=== PATIENT | male | born 1980 | race African-American/Black ===

== ENCOUNTER 2025-07-23 10:53 | Observation (INO) | payer SELFPAY ==
[2025-07-23 11:42] LABS: Absolute Lymphocytes (CBC) 2.0 K/uL (0.7-4.9); Hematocrit 42.6 % (39.6-49.0); Hemoglobin 14.1 g/dL (13.6-17.9); MCH 30.4 pg (27.0-35.0); MCHC 33.2 g/dL (32.0-36.0); MCV 91.6 fL (80-100); MPV 7.5 fL (7.6-11.3); Nucleated RBC Absolute Count 0.0 (0-0); Nucleated Red Blood Cells % 0.1 % (0-0); RBC Red Blood Cell Count 4.66 M/uL (4.33-5.43); White Blood Count 5.80 thou/uL (4.3-10.9)
[2025-07-23 11:49] LABS: PT Prothrombin Time 11.8 SECONDS (10-13.0); Protime INR 1.05
[2025-07-23 12:04] LABS: Anion Gap 8.7 mEq/L (5.0-15.0); BUN Blood Urea Nitrogen 17.0 mg/dL (7-18); Glucose Level 100.0 mg/dL (74-106); NT PRO-BNP 11.0 pg/mL (<125); Potassium 3.7 mEq/L (3.5-5.1); Troponin High Sensitivity 6.6 pg/mL (<58.9)
--- NOTE | 2025-07-23 12:42 | RAD REPORT ---
EXAMINATION: ONE VIEW CHEST XR CLINICAL INDICATION: Male, 45 years old.,CHEST PAIN TECHNIQUE: Frontal chest projection is submitted. Examination is limited by patient positioning and t echnique. COMPARISON: 04/09/2017 FINDINGS: The lungs are well inflated and clear. No pneumothorax or sizable effusion. The heart is normal in s ize. Mediastinal contours are unremarkable. IMPRESSION: No acute intrathoracic abnormalities.
--- NOTE | 2025-07-23 12:47 | RAD REPORT ---
EXAM: CT Chest For Pe Angio TECHNIQUE: CT angiogram of the chest was performed following intravenous contrast administration, inc luding sagittal and coronal as well as maximum intensity projection reformats. One or more of the following dose reduction techniques were used: Automated exposure control, adjustment of the mA and k V according to patient size, and iterative reconstruction. Unless otherwise specified, incidental findings do not require dedicated imaging follow-up. INDICATION: [facility] MAIN CHEST PAIN Bed Name: [id number] COMPARISON: Chest radiograph of the same day. FINDINGS: LINES/TUBES: None. PULMONARY ARTERIES: Main pulmonary arteries are normal in caliber. No filling defects within the pul monary arteries to suggest pulmonary embolus. LUNGS AND AIRWAYS: The lungs and central airways are normal without focal abnormality. PLEURA: No effusion or pneumothorax. HEART AND MEDIASTINUM: The visualized thyroid gland is normal. No mediastinal, hilar, or axillary lym phadenopathy. Heart is unremarkable. No pericardial effusion. SOFT TISSUES AND BONES: No acute osseous abnormality. No significant soft tissue finding. UPPER ABDOMEN: Unremarkable. IMPRESSION: No evidence of acute central pulmonary emboli. No suspicious intrathoracic findings..
[2025-07-23] MEDS ORDERED: ASPIRIN 325 MG TAB ONE (13:13)
--- NOTE | 2025-07-23 13:13 | EDPHYS ---
Physician Documentation [facility] Name: Brad Gaston Age: 45 yrs Sex: Male : 1980 Arrival Date: 07/23/2025 Time: 10:53 Bed 4 Private MD: ED Physician Gary Badillo HPI: 07/23 13:06 This 45 yrs old Black Male presents to ER via Ambulatory with complaints of Chest Pain. rn 13:06 Patient reports left-sided chest pain, sharp, not any worse with taking a deep breath. rn Patient has had blood clot in the past. Has also had MO with stent 10 years ago and has not seen cardiology since. No fever or cough. No trauma. No abdominal pain.. Historical: - Allergies: 11:14 No Known Allergies; bp - PMHx: 11:14 Hypertension; MRSA INFECTIONS; Myocardial infarction; bp - Immunization history:: Adult Immunizations up to date. - Infectious Disease History:: Denies. - Social history:: Smoking status: unknown. - Family history:: not pertinent. - Hospitalizations: : No recent hospitalization is reported. ROS: 13:06 Constitutional: Negative for fever, chills, and weight loss, Cardiovascular: Positive rn for chest pain Respiratory: Negative for shortness of breath, cough, wheezing, and pleuritic chest pain, Abdomen/GI: Negative for abdominal pain, nausea, vomiting, diarrhea, and constipation, MS/Extremity: Negative for injury and deformity, Skin: Negative for injury, rash, and discoloration, Neuro: Negative for headache, weakness, numbness, tingling, and seizure, Exam: 13:06 Constitutional: This is a well developed, well nourished patient who is awake, alert, rn and in no acute distress. Cardiovascular: Regular rate and rhythm. No pulse deficits. Respiratory: Speaking full sentences, unlabored. No increased work of breathing, no retractions or nasal flaring. Abdomen/GI: Soft, non-tender MS/ Extremity: Pulses equal, no cyanosis. Neurovascular intact. Full, normal range of motion. Equal circumference. Neuro: Awake and alert, GCS 15 13:06 ECG was reviewed by the Attending Physician. Vital Signs: 11:13 BP 147 / 93; Pulse 88; Resp 16; Temp 98; Pulse Ox 98% ; Weight 136.08 kg; Height 5 ft. bp 11 in. ; 13:15 BP 119 / 88; Pulse 88; Resp 18; Pulse Ox 100% ; mb9 19:00 BP 125 / 87; Pulse 70; Resp 17; Pulse Ox 100% on R/A; lg3 11:13 Body Mass Index 41.84 (136.08 kg, 180.34 cm) bp MDM: 10:56 Medical Screening Exam initiated rn 13:10 Differential diagnosis: acute myocardial infarction, acute pericarditis, anxiety, rn coronary artery disease chest wall pain, costochondritis, esophagitis, gastritis, pleurisy, pneumothorax, pulmonary embolus, stable angina, unstable angina. HEART Score: History: Moderately Suspicious (1), ECG: Non specific repolarization disturbance / LBTB / PM (1), Age: < or = 45 years (0), Risk Factors: > or = 3 Risk factors for atherosclerotic disease (2), Troponin: < or = 1 x Normal Limit (0), Total Score = 4. Data reviewed: vital signs, nurses notes, lab test result(s), EKG, radiologic studies, CT scan, plain films, and as a result, I will admit patient. Consideration of Admission/Observation Patient was admitted/placed on observation. Escalation of care including admission/observation considered. Independent interpretation of the following test(s) in the Emergency Department EKG: See my EKG interpretation above X-Ray: My interpretation is Chest x-ray images negative for pneumonia or pneumothorax per my interpretation. case monitor: rate is 88 beats/min, Rhythm is normal sinus rhythm, regular, with no ectopy, Interpretation: normal rate, normal rhythm. Care significantly affected by the following chronic conditions: Myocardial infarction with stent. Counseling: I had a detailed discussion with the patient and/or guardian regarding the historical points, exam findings, and any diagnostic results supporting the discharge/admit diagnosis, lab results, radiology results, the need for further work-up and treatment in the hospital. Response to treatment: the patient's symptoms have mildly improved after treatment, and as a result, I will admit patient. 07/23 10:57 Order name: Basic Metabolic Panel; Complete Time: 12:16 rn 07/23 10:57 Order name: CBC with Diff; Complete Time: 12:16 rn 07/23 10:57 Order name: NT PRO-BNP; Complete Time: 12:16 rn 07/23 10:57 Order name: PT-INR; Complete Time: 12:16 rn 07/23 10:57 Order name: Troponin HS; Complete Time: 12:16 rn 07/23 14:54 Order name: CBC with Automated Diff EDMS 07/23 14:54 Order name: CBC with Automated Diff EDMS 07/23 14:54 Order name: Comprehensive Metabolic Panel EDMS 07/23 14:54 Order name: Comprehensive Metabolic Panel EDMS 07/23 14:54 Order name: Lipid Profile EDMS 07/23 14:54 Order name: Lipid Profile EDMS 07/23 14:54 Order name: Protime (+INR) EDMS 07/23 14:54 Order name: Protime (+INR) EDMS 07/23 14:54 Order name: PTT, Activated Partial Thromb EDMS 07/23 14:54 Order name: PTT, Activated Partial Thromb EDMS 07/23 14:54 Order name: Troponin High Sensitivity EDMS 07/23 14:54 Order name: Troponin High Sensitivity EDMS 07/23 14:54 Order name: Troponin High Sensitivity EDMS 07/23 10:57 Order name: XRAY Chest (1 view); Complete Time: 13:02 rn 07/23 10:57 Order name: CT Chest For PE Angio; Complete Time: 13:02 rn 07/23 14:54 Order name: CONS Physician Consult EDMS 07/23 10:57 Order name: Cardiac monitoring; Complete Time: 11:28 rn 07/23 10:57 Order name: EKG - Nurse/Tech; Complete Time: 11:28 rn 07/23 10:57 Order name: IV Saline Lock; Complete Time: 11:28 rn 07/23 10:57 Order name: Labs collected and sent; Complete Time: 11:28 rn 07/23 10:57 Order name: O2 Per Protocol; Complete Time: 11:28 rn 07/23 10:57 Order name: O2 Sat Monitoring; Complete Time: 11:28 rn EC:06 Rate is 84 beats/min. Rhythm is regular. QRS [place] is Normal. [place] interval is normal. QRS rn interval is normal. QT interval is normal. No Q waves. T waves are Inverted in lead III. No ST changes noted. Clinical impression: NSR w/ Non-specific ST/T Changes. Interpreted by me. Reviewed by me. Administered Medications: 13:15 Drug: Aspirin PO 325 mg PO once Route: PO; mb9 14:16 Follow up: Response: No adverse reaction mb9 Disposition Summary: 07/23/25 13:12 Hospitalization Ordered Notes: Hospitalization Status: Observation rn Provider: Hector Sena rn Location: Telemetry/MedSurg (observation) rn Condition: Stable rn Problem: new rn Symptoms: have improved rn Bed/Room Type: Standard rn Room Assignment: 221(07/23/25 18:07) bc6 Diagnosis - Chest pain, unspecified rn Forms: - Medication Reconciliation Form rn - SBAR form rn - Leadership Thank You Letter rn Signatures: Dispatcher [employer] EDMS Gary Badillo MD MD rn Peltier, Brian RN Sherlyn Chow RN RN mb9 Anabel Loredo bc6 Corrections: (The following items were deleted from the chart) 10:57 10:57 Chest Single View+RAD.RAD.BRZ ordered. EDUT EDMS 10:57 10:57 Chest For PE Angio+CT.RAD.BRZ ordered. EDUT EDMS 18:07 13:12 rn bc6
--- NOTE | 2025-07-23 13:13 | ER ---
Nurse's Notes [facility] Name: Brad Gaston Age: 45 yrs Sex: Male : 1980 Arrival Date: 07/23/2025 Time: 10:53 Bed 4 Private MD: Diagnosis: Chest pain, unspecified Presentation: 07/23 11:13 Chief complaint: Patient states: 20 MIN LEFT CP, SHARP. Coronavirus screen: At this bp time, the client does not indicate any symptoms associated with coronavirus-19. Ebola Screen: No symptoms or risks identified at this time. Initial Sepsis Screen: Does the patient meet any 2 criteria? No. Patient's initial sepsis screen is negative. Does the patient have a suspected source of infection? No. Patient's initial sepsis screen is negative. Risk Assessment: Do you want to hurt yourself or someone else? Patient reports no desire to harm self or others. Onset of symptoms was July 23, 2025 at 10:30. 11:13 Method Of Arrival: Ambulatory bp 11:13 Acuity: MARIO 3 bp Triage Assessment: 11:14 General: Appears uncomfortable, Behavior is cooperative, appropriate for age, anxious. bp Pain: Complains of pain in chest. EENT: No deficits noted. Neuro: No deficits noted. Cardiovascular: Reports chest pain. Respiratory: No deficits noted. GI: No signs and/or symptoms were reported involving the gastrointestinal system. : No signs and/or symptoms were reported regarding the genitourinary system. Derm: No deficits noted. Musculoskeletal: No deficits noted. Historical: - Allergies: 11:14 No Known Allergies; bp - PMHx: 11:14 Hypertension; MRSA INFECTIONS; Myocardial infarction; bp - Immunization history:: Adult Immunizations up to date. - Infectious Disease History:: Denies. - Social history:: Smoking status: unknown. - Family history:: not pertinent. - Hospitalizations: : No recent hospitalization is reported. Screenin:41 [facility] ED Fall Risk Assessment (Adult) History of falling in the last 3 months, mb9 including since admission No falls in past 3 months (0 pts) Confusion or Disorientation No (0 pts) Intoxicated or Sedated No (0 pts) Impaired Gait No (0 pts) Mobility Assist Device Used No (0 pt) Altered Elimination No (0 pt) Score/Fall Risk Level 0 - 2 = Low Risk Oriented to surroundings, Maintained a safe environment, Educated pt \T\ family on fall prevention, incl call for assistance when getting out of bed. Abuse screen: Denies threats or abuse. Nutritional screening: No deficits noted. Tuberculosis screening: No symptoms or risk factors identified. Assessment: 12:54 General: Appears in no apparent distress. Behavior is calm, cooperative. Pain: mb9 Complains of pain in chest Pain does not radiate. Pain currently is 4 out of 10 on a pain scale. Quality of pain is described as sharp, stabbing, Pain began suddenly, Is continuous. Neuro: Baldwin Agitation-Sedation Scale (RASS): 0 - Alert and Calm Level of Consciousness is awake, alert, obeys commands, Oriented to person, place, time, situation, Appropriate for age. Cardiovascular: Reports chest pain, Heart tones S1 S2 present Patient's skin is warm and dry. Respiratory: Airway is patent Respiratory effort is even, unlabored, Respiratory pattern is regular, symmetrical, Breath sounds are clear bilaterally. GI: Abdomen is round non-distended, Bowel sounds present X 4 quads. : No signs and/or symptoms were reported regarding the genitourinary system. EENT: Derm: Skin is pink, warm \T\ dry. Musculoskeletal: Range of motion: intact in all extremities. 14:15 Reassessment: Patient appears in no apparent distress at this time. No changes from mb9 previously documented assessment. Patient and/or family updated on plan of care and expected duration. Pain level reassessed. Patient is alert, oriented x 3, equal unlabored respirations, skin warm/dry/pink. 19:00 Reassessment: Patient appears in no apparent distress at this time. No changes from lg3 previously documented assessment. Patient and/or family updated on plan of care and expected duration. Pain level reassessed. Patient is alert, oriented x 3, equal unlabored respirations, skin warm/dry/pink. Patient states feeling better. Vital Signs: 11:13 BP 147 / 93; Pulse 88; Resp 16; Temp 98; Pulse Ox 98% ; Weight 136.08 kg; Height 5 ft. bp 11 in. ; 13:15 BP 119 / 88; Pulse 88; Resp 18; Pulse Ox 100% ; mb9 19:00 BP 125 / 87; Pulse 70; Resp 17; Pulse Ox 100% on R/A; lg3 11:13 Body Mass Index 41.84 (136.08 kg, 180.34 cm) bp ED Course: 10:54 Patient arrived in ED. im 10:56 Gary Badillo MD is Attending Physician. rn 11:14 Triage completed. bp 11:14 Arm band placed on. bp 11:28 Inserted saline lock: 20 gauge in left forearm, using aseptic technique. Blood ty collected. Flushed with 10 mL NS. 11:58 XRAY Chest (1 view) In Process Unspecified. EDMS 12:26 CT Chest For PE Angio In Process Unspecified. EDMS 12:36 Sherlyn Kidd, RN is Primary Nurse. mb9 12:42 Bed in low position. Call light in reach. Side rails up X 1. Provided Education on: mb9 press call light if needing anything. Client placed on continuous cardiac and pulse oximetry monitoring. NIBP monitoring applied. water treatment plant repairer on. 13:12 Hector Sena MD is Hospitalizing Provider. rn 14:15 No provider procedures requiring assistance completed. Patient admitted, IV remains in mb9 place. Administered Medications: 13:15 Drug: Aspirin PO 325 mg PO once Route: PO; mb9 14:16 Follow up: Response: No adverse reaction mb9 Medication: 12:42 VIS not applicable for this client. mb9 Outcome: 13:12 Decision to Hospitalize by Provider. rn 19:10 Admitted to Med/surg accompanied by tech, via wheelchair, room 221, lg3 19:10 Condition: stable 19:10 Instructed on the need for admit, 19:45 Patient left the ED. lg3 Signatures: Dispatcher [employer] EDAK Gary Badillo MD MD rn Peltier, Brian, RN Maura Salter RN RN lg3 Sherlyn Kidd, RN RN mb9 Laquita Capellan im Tristen Batres ty
--- NOTE | 2025-07-23 14:45 | P.HP ---
Patient History Date of Service: 07/23/25 Reason for admission: Chest pain rule out acute coronary syndrome History of Present Illness: Patient is a 45-year-old gentleman who started having sharp chest pain on the left side; chest pain started around 930 this morning. He was having pain on the left side behind the eye socket; vomited prior to chest pain and he was diaphoretic. This chest pain was different in nature than the reflux symptoms he has been having. Positional change to the left side worsening the chest pain. Had an acute coronary syndrome 10 years ago but has never followed up with a physician since that time. Noncompliant with his antihypertensives. Patient decided that he would see a doctor because the chest pain was very severe and it was not improving. Allergies No Known Allergies Allergy (Verified 04/07/17 03:53) Home Medications: Amlodipine [Norvasc*] 5 mg PO DAILY #30 tab 04/10/17 Aspirin [Aspirin EC 81 MG] 81 mg PO DAILY #30 tablet. 04/10/17 Metoprolol Tartrate [Lopressor*] 50 mg PO BID #60 tab 04/10/17 lisinopriL [Prinivil*] 20 mg PO DAILY #30 tab 04/10/17 Rivaroxaban [Xarelto] 15 mg PO BID #42 tablet 04/13/17 - Past Medical/Surgical History Diabetic: No -: Acute coronary syndrome -: Stents -: removal of boil to groin area -: left shoulder surgery - Family History Mother Medical History: Heart disease - Social History Smoking Status: Current every day smoker Alcohol use: No CD- Drugs: No Caffeine use: No Review of Systems 10-point ROS is otherwise unremarkable Physical Examination - Vital Signs Temperature: 98 F Blood Pressure: 140/80 Pulse: 80 Respirations: 18 Pulse Ox (%): 95 - Physical Exam General: Alert, In no apparent distress, Oriented x3 HEENT: Atraumatic, PERRLA, Mucous membr. moist/pink, EOMI, Sclerae nonicteric Neck: Supple, 2+ carotid pulse no bruit, No LAD, Without JVD or thyroid abnormality Respiratory: Clear to auscultation bilaterally, Normal air movement Cardiovascular: Regular rate/rhythm, Normal S1 S2 Gastrointestinal: Normal bowel sounds, Soft and benign, Non-distended, No tenderness Musculoskeletal: No clubbing, No swelling, No tenderness Integumentary: No rashes Neurological: Normal gait, Normal speech, Normal strength at 5/5 x4 extr, Normal tone, Sensation intact, Cranial nerves 3-12 intact, Normal affect Lymphatics: No axilla or inguinal lymphadenopathy - Studies Laboratory Data (last 24 hrs) 07/23/25 07/23/25 07/23/25 11:29 11:29 11:29 WBC 5.80 Hgb 14.1 Hct 42.6 Plt Count 382 PT 11.8 INR 1.05 Sodium 141 Potassium 3.7 BUN 17 Creatinine 1.16 Glucose 100 Assessment & Plan - Problems (Diagnosis) (1) Chest pain, rule out acute myocardial infarction Current Visit: Yes Status: Acute (2) Essential hypertension Current Visit: No Status: Chronic (3) Hyperlipidemia Current Visit: No Status: Chronic Qualifiers: (4) Smoking history Current Visit: No Status: Chronic - Plan Chest pain rule out acute coronary syndrome; -High-sensitivity troponin -Cardiology consultation -Echocardiogram and stress test per cardiology recommendation -Repeat EKG -Work-up for other etiologies of cardiac chest pain if troponins remain negative -Lipid profile -Photonics Engineer regarding modifying risk for cardiac disease Discharge Plan: Home Plan to discharge in: 24 Hours - Advance Directives Does patient have a Living Will: No Does patient have a Durable POA for Healthcare: No - Code Status/Comfort Care Code Status Assessed: Yes Code Status: Full Code Critical Care: No Time Spent Managing PTS Care (In Minutes): 45
[2025-07-23] MEDS ORDERED: ACETAMINOPHEN 500 MG TAB PO PRN (14:47)
[2025-07-23] MEDS: PANTOPRAZOLE 40MG TABLET PO SCH (16:30)
[2025-07-23] MEDS ORDERED: ONDANSETRON 4 MG/2 ML VIAL ONE (16:45)
[2025-07-23] MEDS ORDERED: PANTOPRAZOLE 40MG TABLET PO ONE (16:45)
[2025-07-23] MEDS ORDERED: MORPHINE 2 MG/ML SYR ONE (16:45)
[2025-07-23] MEDS ORDERED: METHYLPREDNISOLONE 40 MG INJ ONE (16:46)
[2025-07-23] MEDS: METHYLPREDNISOLONE 40 MG INJ IV SCH (16:47)
[2025-07-23] MEDS: ONDANSETRON 4 MG/2 ML VIAL IV PRN (16:47)
[2025-07-23] MEDS: MORPHINE 2 MG/ML SYR IV PRN (16:48)
[2025-07-23 20:15] VITALS: O2SAT 100
[2025-07-23 20:23] VITALS: BMI 42.0
[2025-07-23] MEDS: ATORVASTATIN 40 MG TAB PO SCH (20:38)
[2025-07-23] MEDS: METOPROLOL TAR 25 MG TAB PO SCH (20:38)
[2025-07-24 05:30] LABS: Absolute Lymphocytes (CBC) 0.9 K/uL (0.7-4.9); Hematocrit 42.5 % (39.6-49.0); Hemoglobin 14.6 g/dL (13.6-17.9); MCH 31.1 pg (27.0-35.0); MCHC 34.2 g/dL (32.0-36.0); MCV 90.7 fL (80-100); MPV 7.7 fL (7.6-11.3); Nucleated RBC Absolute Count 0.0 (0-0); Nucleated Red Blood Cells % 0.0 % (0-0); RBC Red Blood Cell Count 4.69 M/uL (4.33-5.43); White Blood Count 6.90 thou/uL (4.3-10.9)
[2025-07-24 05:41] LABS: PT Prothrombin Time 12.6 SECONDS (10-13.0); PTT, Activated Partial Thromb 34.0 SECONDS (27.2-37.4); Protime INR 1.12
[2025-07-24 05:46] LABS: ALT/SGPT 31.0 U/L (16-61); AST/SGOT 12.0 U/L (15-37); Albumin 3.4 g/dL (3.4-5.0); Albumin/Globulin Ratio 0.7 (1.1-1.8); Alkaline Phosphatase 78.0 U/L (45-117); Anion Gap 8.3 mEq/L (5.0-15.0); BUN Blood Urea Nitrogen 14.0 mg/dL (7-18); Globulin 4.7 g/dL (2.3-3.5); Glucose Level 128.0 mg/dL (74-106); HDL Cholesterol 51.0 mg/dL (40-60); LDL Cholesterol, Calculated 158.0 mg/dL (<130); LDL Cholesterol,Calc NonReport 158.0; Potassium 4.3 mEq/L (3.5-5.1)
[2025-07-24 05:52] LABS: Blood Morphology Comment NOT SEEN (NOT SEEN); Differential Total Cells Count 100; Segmented Neutrophils 69 % (40-80)
[2025-07-24 07:58] VITALS: TEMP 97.7
[2025-07-24] MEDS: ASPIRIN EC 81 MG TAB PO SCH (08:43)
[2025-07-24 11:50] VITALS: BP 122/69
--- NOTE | 2025-07-24 14:50 | P.CNS ---
Date of Consult: 07/24/25 Chief Complaint: Chest pain rule out acute coronary syndrome History of Present Illness: Patient with PMH of HTN, presented with left sided chest pain, left side head pain and arm numbness, he feels better today, denies any other cardiac symptoms. Allergies No Known Allergies Allergy (Verified 07/23/25 20:05) Home medications list reviewed: Yes Home Medications: Aspirin [Aspirin EC 81 MG] 81 mg PO DAILY #30 tab 07/24/25 Atorvastatin Calcium [Lipitor] 40 mg PO BEDTIME #30 tab 07/24/25 Metoprolol Tartrate [Lopressor*] 25 mg PO BID 6AM 6PM #60 tab 07/24/25 Pantoprazole [Protonix Tab*] 40 mg PO BIDAC #60 tab 07/24/25 - Past Medical/Surgical History Diabetic: No -: Acute coronary syndrome -: Stents -: removal of boil to groin area -: left shoulder surgery - Family History Mother Medical History: Heart disease - Social History Smoking Status: Unknown if ever smoked Alcohol use: No CD- Drugs: No Caffeine use: No Place of Residence: Home Review of Systems 10-point ROS is otherwise unremarkable Physical Examination Temp Pulse Resp BP Pulse Ox 97.7 F 71 12 122/69 95 07/24/25 11:49 07/24/25 11:49 07/24/25 11:49 07/24/25 11:49 07/24/25 11:49 General: Alert, In no apparent distress HEENT: Atraumatic, PERRLA, Mucous membr. moist/pink, EOMI, Sclerae nonicteric Neck: Supple, 2+ carotid pulse no bruit, No LAD, Without JVD or thyroid abnormality Respiratory: Clear to auscultation bilaterally, Normal air movement Cardiovascular: Regular rate/rhythm, Normal S1 S2 Gastrointestinal: Normal bowel sounds, No tenderness Musculoskeletal: No tenderness Integumentary: No rashes Neurological: Normal gait, Normal speech, Normal tone, Normal affect Lymphatics: No axilla or inguinal lymphadenopathy - Problems (1) Chest pain, rule out acute myocardial infarction Current Visit: Yes Status: Acute Plan: atypical with negative troponin x3 no further cardiac work up needed. (2) Essential hypertension Current Visit: No Status: Chronic Plan: continue lopressor 25 mg po BID (3) Hyperlipidemia Current Visit: No Status: Chronic Plan: Continue lipitor 40 mg daily Qualifiers:
== END 2025-07-24 15:16 | disposition home or self-care (01) ==
LOC: ER 10:53 → ERHOLD 14:47 → 2ND 19:33
PROVIDERS: ADMIT Hospitalist; ATTEND Hospitalist
DX: R11.10 Vomiting, unspecified (principal); R51.9 Headache, unspecified; R61 Generalized hyperhidrosis; F17.210 Nicotine dependence, cigarettes, uncomplicated; I10 Essential (primary) hypertension; E78.5 Hyperlipidemia, unspecified
CPT/HCPCS: 36415; 71045; 71275; 80048; 80053; 80061; 83880; 84484; 85025; 85610; 85730; 93005; 93306; 99285; G0378; J2270; J2405; J2919; Q9967